=== PATIENT | female | born 1995 | race Caucasian/White ===

== ENCOUNTER 2018-04-15 06:37 | Emergency (ER) | payer BC ==
[2018-04-15] MEDS ORDERED: LIDOCAINE 5% (700 MG) TRANSDERMAL ADH..PATCH TP ONE (07:36)
[2018-04-15] MEDS ORDERED: IBUPROFEN 600 MG TABLET PO ONE (07:36)
[2018-04-15] MEDS ORDERED: ACETAMINOPHEN 325 MG TABLET PO ONE (07:36)
--- NOTE | 2018-04-15 08:00 | ER Document Report ---
ED General - General Chief Complaint: Neck Pain < 24hrs old Stated Complaint: NECK PAIN Time Seen by Provider: 04/15/18 07:23 TRAVEL OUTSIDE OF THE [place] IN LAST 30 DAYS: No - HPI Patient complains to provider of: Right neck pain Notes: Patient coming in for evaluation of right neck pain patient states initially had headache back of her head is able to take some aspirin with relief of her headache however continues to have right-sided neck pain points to the lateral portion of the right side of the neck. Patient states difficult to turn her head to the left. Patient denies any fevers chills nausea vomiting diarrhea ear pain throat pain. Patient denies any difficulty swallowing. No past medical history except for smoking patient resting comfortably upon my evaluation the head slightly tilted to the right - Related Data Allergies/Adverse Reactions: Penicillins Allergy (Verified 04/15/18 07:30) Sulfa (Sulfonamide Antibiotics) Allergy (Verified 04/15/18 07:30) Past Medical History - Social History Smoking Status: Current Every Day Smoker Chew tobacco use (# tins/day): No Frequency of alcohol use: None Drug Abuse: None Family History: Reviewed & Not Pertinent Patient has suicidal ideation: No Patient has homicidal ideation: No Renal/ Medical History: Denies: Hx Peritoneal Dialysis Past Surgical History: Reports: Hx Cholecystectomy, Hx Tonsillectomy Review of Systems - Review of Systems Constitutional: No symptoms reported EENT: Other - Neck pain Cardiovascular: No symptoms reported Respiratory: No symptoms reported Gastrointestinal: No symptoms reported Genitourinary: No symptoms reported Female Genitourinary: No symptoms reported Musculoskeletal: No symptoms reported Skin: No symptoms reported Hematologic/Lymphatic: No symptoms reported Neurological/Psychological: No symptoms reported -: Yes All other systems reviewed and negative Physical Exam - Vital signs Vitals: Temp Pulse Resp BP Pulse Ox 98.6 F 92 18 144/77 H 99 04/15/18 06:42 04/15/18 06:42 04/15/18 06:42 04/15/18 06:42 04/15/18 06:42 Interpretation: Normal - General General appearance: Appears well, Alert - HEENT Head: Normocephalic, Atraumatic Eyes: Normal Conjunctiva: Normal Cornea: Normal Pupils: PERRL Ears: Normal External canal: Normal Tympanic membrane: Normal Sinus: Normal Nasal: Normal Pharynx: Normal Neck: Other - Evaluation of the neck reveals no lymphadenopathy no shotty nodes no midline tenderness of the cervical region no paraspinal tenderness. Patient symptoms are able to be reproduced with palpation underneath the right mastoid tenderness palpation of the right mastoid. Pain does go down lateral portion of the neck no pain to the clavicle region difficult range of motion looking to the left no difficulty with turning head to the right. - Respiratory Respiratory status: No respiratory distress Chest status: Nontender Breath sounds: Normal Chest palpation: Normal - Cardiovascular Rhythm: Regular Heart sounds: Normal auscultation Murmur: No - Abdominal Inspection: Normal Distension: No distension Bowel sounds: Normal Tenderness: Nontender Organomegaly: No organomegaly - Back Back: Normal, Nontender - Extremities General upper extremity: Normal inspection, Nontender, Normal color, Normal ROM , Normal temperature General lower extremity: Normal inspection, Nontender, Normal color, Normal ROM , Normal temperature, Normal weight bearing. No: Hansel's sign - Neurological Neuro grossly intact: Yes Cognition: Normal Orientation: AAOx4 [place] Coma Scale Eye Opening: Spontaneous [place] Coma Scale Verbal: Oriented Tk Coma Scale Motor: Obeys Commands Tk Coma Scale Total: 15 Speech: Normal Motor strength normal: LUE, RUE, LLE, RLE Sensory: Normal - Psychological Associated symptoms: Normal affect, Normal mood - Skin Skin Temperature: Warm Skin Moisture: Dry Skin Color: Normal Course - Re-evaluation Re-evalutation: 04/15/18 09:09 Patient with pain of the sternocleidomastoid muscle beginning of possible torticollis. Patient was educated about use of cold packs warm packs lidocaine patches Tylenol Motrin. We will give the patient a prescription for Valium that she can take at night to help her sleep also to help out with the pain. Patient states understanding was discharged home. - Vital Signs Vital signs: Temp Pulse Resp BP Pulse Ox 98.5 F 84 14 133/66 H 100 04/15/18 08:37 04/15/18 08:37 04/15/18 08:37 04/15/18 08:37 04/15/18 08:37 Discharge - Discharge Clinical Impression: Torticollis Condition: Good Instructions: Ice Packs ([facility]), Torticollis ([facility]), Warm Packs ([facility]) Additional Instructions: Examination is consistent with torticollis. Muscle spasm or muscle tensioning of a specific muscle in the neck that can cause pain when turning her head however recommend taking Tylenol and Motrin for pain control he may take the Valium as prescribed at nighttime to also aid with your pain warm packs ice packs to the area will also aid in pain. Return to ER symptoms worsen. Prescriptions: Diazepam [Valium 2 mg Tablet] 2 mg PO QHS #7 tablet Ibuprofen [Motrin 600 mg Tablet] 600 mg PO Q8HP PRN #21 tablet PRN Reason: Forms: Return to Work Referrals: CAITY ALFONSO PA [[employer]IED HEALTH PROFESSIONAL] - Follow up as needed
[2018-04-15 08:38] VITALS: BP 133/66
== END 2018-04-15 08:41 | disposition home or self-care (01) ==
LOC: ER 06:37
DX: M43.6 Torticollis (principal); M54.2 Cervicalgia; R51 Headache; F17.200 Nicotine dependence, unspecified, uncomplicated
CPT/HCPCS: 99283